=== PATIENT | male | born 1930 | race Caucasian/White ===

== ENCOUNTER 2020-10-17 07:14 | Inpatient (IN) | payer MEDICARE, OTHER ==
[2020-10-17 07:59] LABS: #Monocytes 0.3 10x3/uL (0.0-1.1); #Neutrophils 5.4 10x3/uL (1.5-8.4); %Basophils 0.6 % (0.0-2.0); %Lymphocytes 7.6 % (18.0-47.0); %Monocytes 5.4 % (0.0-10.0); %Neutrophils 85.5 % (40.0-75.0); Hemoglobin 10.6 g/dL (13.5-17.5); Mean Corpuscular HGB CONC 32.3 g/dL (32.0-36.0); Mean Corpuscular Hemoglobin 30.1 pg (27.0-33.0); Mean Corpuscular Volume 93.2 fl (81.2-95.1); Mean Platelet Volume 11.8 fl (7.4-10.4); Platelet Count 114 10x3/uL (150-450); RBC Distribution Width 14.8 % (11.5-14.5); Red Blood Cell (RBC) Count 3.52 10x6/uL (4.32-5.72); White Blood Cell (WBC) Count 6.3 10x3/uL (3.5-10.5)
[2020-10-17 08:07] LABS: INR-International Normal Ratio 1.8; Prothrombin Time 19.5 sec (9.5-12.1)
[2020-10-17 08:25] LABS: ALT (SGPT) 19 U/L (8-55); AST (SGOT) 24 U/L (5-34); Albumin 3.3 g/dL (3.4-4.8); Alkaline Phosphatase 42 U/L (40-110); Anion Gap 16 mmol/L (10-20); BUN (Urea Nitrogen) 23 mg/dL (8.4-25.7); Calc. Creatinine Clearance 0 mL/min (70-130); Carbon Dioxide 23 mmol/L (23-31); Chloride 102 mmol/L (98-107); Globulin 3.1 g/dL (2.4-3.5); Glucose 104 mg/dL (83-110); Potassium 3.4 mmol/L (3.5-5.1); Protein, Total 6.4 g/dL (5.8-8.1); Sodium 138 mmol/L (136-145)
[2020-10-17 08:26] LABS: Platelet Morphology Comment Appears Decreased; RBC Morphology Normal
[2020-10-17] MEDS ORDERED: Cefepime 2 GM VIAL ONE (08:40)
[2020-10-17] MEDS ORDERED: Vancomycin 1.5 GRAM/300 ML BAG 1.5 GM in Premix Bag 1 BAG IVPB SCH (08:45)
[2020-10-17 09:20] LABS: SARS-CoV-2 NAA Rapid Test Not Detected (NotDetected)
[2020-10-17] MEDS ORDERED: Ondansetron PF 4 MG/2 ML Vial IVP PRN (09:43)
[2020-10-17] MEDS ORDERED: Potassium Chloride 20 MEQ TAB PO SCH (10:00)
[2020-10-17] MEDS: Heparin 5,000 UNITS/ML VIAL SC SCH ×2 (15:00→20:12)
[2020-10-17] MEDS: Acetaminophen 325 MG TAB PO PRN (20:11)
[2020-10-17] MEDS: Atorvastatin Calcium 20 MG TAB PO SCH (20:11)
[2020-10-17] MEDS: Tamsulosin HCl 0.4 MG CAP PO SCH (20:12)
[2020-10-17] MEDS: Carvedilol 3.125 MG TAB PO SCH (20:12)
[2020-10-17] MEDS: Fish Oil 1,000 MG CAP PO SCH (20:12)
[2020-10-17] MEDS: Cefepime 1 GM in Sodium Chloride 0.9% 100 ML IVPB SCH (20:12)
[2020-10-17] MEDS: Gabapentin 300 MG CAP PO SCH (20:12)
[2020-10-18 05:12] LABS: Anion Gap 18 mmol/L (10-20); BUN (Urea Nitrogen) 23 mg/dL (8.4-25.7); Calc. Creatinine Clearance 43 mL/min (70-130); Calcium 8.5 mg/dL (7.8-10.44); Carbon Dioxide 16 mmol/L (23-31); Chloride 108 mmol/L (98-107); Glucose 98 mg/dL (83-110); Potassium 3.7 mmol/L (3.5-5.1); Sodium 138 mmol/L (136-145)
[2020-10-18 06:20] LABS: Hemoglobin 10.9 g/dL (13.5-17.5); Mean Corpuscular HGB CONC 30.4 g/dL (32.0-36.0); Mean Corpuscular Hemoglobin 30.4 pg (27.0-33.0); Mean Platelet Volume 11.7 fl (7.4-10.4); Platelet Count 79 10x3/uL (150-450); Red Blood Cell (RBC) Count 3.58 10x6/uL (4.32-5.72); White Blood Cell (WBC) Count 6.4 10x3/uL (3.5-10.5)
[2020-10-18 06:23] LABS: Band 5 % (5-11)
[2020-10-18 06:27] LABS: Monocytes 6 % (0-10)
[2020-10-18 06:28] LABS: Lymphocytes 15 % (21-51); Reactive Lymphocytes 4 % (0-10)
[2020-10-18 06:29] LABS: Anisocytosis SLIGHT = 6-15 cells (100X) (0-5/hpf); Neutrophil 68 % (42-75)
[2020-10-18 06:30] LABS: Macrocytosis MODERATE=16-30 cells (100X) (0-5/hpf)
[2020-10-18 06:31] LABS: Large Platelets SLIGHT; Platelet Clumps SLIGHT
[2020-10-18 06:32] LABS: Platelet Morphology Comment Appears Decreased
[2020-10-18 06:33] LABS: MDiff Complete? YES; Manual Diff?? YES
[2020-10-18] MEDS: Acetaminophen 325 MG TAB PO PRN ×2 (06:52→20:23)
[2020-10-18 09:23] LABS: INR-International Normal Ratio 1.5; Prothrombin Time 16.6 sec (9.5-12.1)
[2020-10-18] MEDS: Carvedilol 3.125 MG TAB PO SCH ×2 (09:40→20:24)
[2020-10-18] MEDS: Vancomycin HCl 1 GM in Sodium Chloride 0.9% 250 ML 250 ML IVPB SCH (09:40)
[2020-10-18] MEDS: Heparin 5,000 UNITS/ML VIAL SC SCH ×3 (09:40→20:23)
[2020-10-18] MEDS: Furosemide 20 MG TAB PO SCH (09:40)
[2020-10-18] MEDS: predniSONE 10 MG TAB PO SCH (09:40)
[2020-10-18] MEDS: Cefepime 1 GM in Sodium Chloride 0.9% 100 ML IVPB SCH ×2 (09:44→20:22)
[2020-10-18] MEDS: Tamsulosin HCl 0.4 MG CAP PO SCH (20:24)
[2020-10-18] MEDS: Atorvastatin Calcium 20 MG TAB PO SCH (20:24)
[2020-10-18] MEDS: Gabapentin 300 MG CAP PO SCH (20:24)
[2020-10-18] MEDS: Fish Oil 1,000 MG CAP PO SCH (20:34)
[2020-10-19] MEDS: Acetaminophen 325 MG TAB PO PRN ×2 (03:20→21:51)
[2020-10-19] MEDS: Heparin 5,000 UNITS/ML VIAL SC SCH ×3 (08:37→15:51)
[2020-10-19] MEDS: Aspirin 81 mg Enteric Coated Tablet PO SCH (08:38)
[2020-10-19] MEDS: predniSONE 10 MG TAB PO SCH (08:38)
[2020-10-19] MEDS: Furosemide 20 MG TAB PO SCH (08:38)
[2020-10-19] MEDS: Cefepime 1 GM in Sodium Chloride 0.9% 100 ML IVPB SCH (08:39)
[2020-10-19] MEDS: Vancomycin HCl 1 GM in Sodium Chloride 0.9% 250 ML 250 ML IVPB SCH (08:39)
[2020-10-19] MEDS: Carvedilol 3.125 MG TAB PO SCH ×2 (08:39→20:35)
[2020-10-19] MEDS ORDERED: CEFAZOLIN 2 GM in Premix Bag 1 BAG IVPB SCH (18:00)
[2020-10-19] MEDS: Atorvastatin Calcium 20 MG TAB PO SCH (20:27)
[2020-10-19] MEDS: Gabapentin 300 MG CAP PO SCH (20:27)
[2020-10-19] MEDS: Fish Oil 1,000 MG CAP PO SCH (20:35)
[2020-10-19] MEDS: Tamsulosin HCl 0.4 MG CAP PO SCH (20:35)
[2020-10-20] MEDS: Acetaminophen 325 MG TAB PO PRN (02:54)
[2020-10-20] MEDS ORDERED: diphenhydrAMINE 25 MG CAP PO SCH (03:00)
[2020-10-20] MEDS: CEFAZOLIN 2 GM in Premix Bag 1 BAG IVPB SCH ×3 (05:16→22:38)
[2020-10-20] MEDS: Aspirin 81 mg Enteric Coated Tablet PO SCH (09:13)
[2020-10-20] MEDS: Furosemide 20 MG TAB PO SCH (09:14)
[2020-10-20] MEDS: Carvedilol 3.125 MG TAB PO SCH ×2 (09:14→22:39)
[2020-10-20] MEDS: predniSONE 10 MG TAB PO SCH (09:14)
[2020-10-20] MEDS ORDERED: Lidocaine 1% PF 5 ML VIAL ONE (10:55)
[2020-10-20] MEDS ORDERED: Sodium Bicarbonate 2.5 MEQ/5 ML VIAL ONE (10:56)
[2020-10-20] MEDS: Atorvastatin Calcium 20 MG TAB PO SCH (22:39)
[2020-10-20] MEDS: Tamsulosin HCl 0.4 MG CAP PO SCH (22:39)
[2020-10-20] MEDS: Gabapentin 300 MG CAP PO SCH (22:39)
[2020-10-20] MEDS: Fish Oil 1,000 MG CAP PO SCH (22:39)
[2020-10-21] MEDS: CEFAZOLIN 2 GM in Premix Bag 1 BAG IVPB SCH ×3 (04:35→21:51)
[2020-10-21 05:55] LABS: INR-International Normal Ratio 1.1; Prothrombin Time 11.8 sec (9.5-12.1)
[2020-10-21] MEDS: Aspirin 81 mg Enteric Coated Tablet PO SCH (09:14)
[2020-10-21] MEDS: Furosemide 20 MG TAB PO SCH (09:14)
[2020-10-21] MEDS: predniSONE 10 MG TAB PO SCH (09:14)
[2020-10-21] MEDS: Carvedilol 3.125 MG TAB PO SCH ×2 (09:14→21:51)
[2020-10-21] MEDS: Tamsulosin HCl 0.4 MG CAP PO SCH (21:51)
[2020-10-21] MEDS: Fish Oil 1,000 MG CAP PO SCH (21:51)
[2020-10-21] MEDS: Gabapentin 300 MG CAP PO SCH (21:51)
[2020-10-21] MEDS: Atorvastatin Calcium 20 MG TAB PO SCH (21:51)
[2020-10-22] MEDS: CEFAZOLIN 2 GM in Premix Bag 1 BAG IVPB SCH ×3 (05:11→21:36)
[2020-10-22] MEDS: predniSONE 10 MG TAB PO SCH (09:59)
[2020-10-22] MEDS: Furosemide 20 MG TAB PO SCH (09:59)
[2020-10-22] MEDS: Carvedilol 3.125 MG TAB PO SCH ×2 (09:59→21:36)
[2020-10-22] MEDS: Aspirin 81 mg Enteric Coated Tablet PO SCH (10:02)
[2020-10-22] MEDS: Gabapentin 300 MG CAP PO SCH (21:35)
[2020-10-22] MEDS: Tamsulosin HCl 0.4 MG CAP PO SCH (21:35)
[2020-10-22] MEDS: Fish Oil 1,000 MG CAP PO SCH (21:35)
[2020-10-22] MEDS: Atorvastatin Calcium 20 MG TAB PO SCH (21:36)
[2020-10-23] MEDS: CEFAZOLIN 2 GM in Premix Bag 1 BAG IVPB SCH ×3 (05:13→21:37)
[2020-10-23] MEDS: Furosemide 20 MG TAB PO SCH (08:38)
[2020-10-23] MEDS: predniSONE 10 MG TAB PO SCH (08:38)
[2020-10-23] MEDS: Aspirin 81 mg Enteric Coated Tablet PO SCH (08:38)
[2020-10-23] MEDS: Carvedilol 3.125 MG TAB PO SCH ×2 (08:38→21:38)
[2020-10-23] MEDS: Atorvastatin Calcium 20 MG TAB PO SCH (21:37)
[2020-10-23] MEDS: Tamsulosin HCl 0.4 MG CAP PO SCH (21:37)
[2020-10-23] MEDS: Gabapentin 300 MG CAP PO SCH (21:38)
[2020-10-23] MEDS: Fish Oil 1,000 MG CAP PO SCH (21:38)
[2020-10-24] MEDS: CEFAZOLIN 2 GM in Premix Bag 1 BAG IVPB SCH (04:33)
[2020-10-24] MEDS: Aspirin 81 mg Enteric Coated Tablet PO SCH (10:22)
[2020-10-24] MEDS: predniSONE 10 MG TAB PO SCH (10:22)
[2020-10-24] MEDS: Furosemide 20 MG TAB PO SCH (10:23)
[2020-10-24] MEDS: Carvedilol 3.125 MG TAB PO SCH (10:23)
[2020-10-24 13:21] VITALS: BP 130/61; TEMP 98
== END 2020-10-24 14:30 | DRG 872 ==
LOC: CSHERS 07:14 → CSHTELE 08:34
PROVIDERS: ADMIT Internal Medicine; ATTEND Internal Medicine
PROC: 02HV33Z Insertion of Infusion Device into Superior Vena Cava, Percutaneous Approach (ICD-10-PCS; principal; 2020-10-20)
PROC: B548ZZA Ultrasonography of Superior Vena Cava, Guidance (ICD-10-PCS; 2020-10-20)
DX: A41.01 Sepsis due to Methicillin susceptible Staphylococcus aureus (principal); M00.871 Arthritis due to other bacteria, right ankle and foot; M86.171 Other acute osteomyelitis, right ankle and foot; L03.031 Cellulitis of right toe; I73.9 Peripheral vascular disease, unspecified; Z20.822 Contact with and (suspected) exposure to COVID-19; K21.9 Gastro-esophageal reflux disease without esophagitis; I48.91 Unspecified atrial fibrillation; N40.0 Benign prostatic hyperplasia without lower urinary tract symptoms; I10 Essential (primary) hypertension; G62.9 Polyneuropathy, unspecified; E87.6 Hypokalemia; L97.519 Non-pressure chronic ulcer of other part of right foot with unspecified severity; Z88.5 Allergy status to narcotic agent; Z88.8 Allergy status to other drugs, medicaments and biological substances; Z79.01 Long term (current) use of anticoagulants; Z79.899 Other long term (current) drug therapy; E78.5 Hyperlipidemia, unspecified; Z79.82 Long term (current) use of aspirin
CPT/HCPCS: 0240U; 36415; 36571; 71045; 80048; 80053; 82565; 83605; 83735; 84520; 85025; 85610; 85730; 87040; 87070; 87077; 87149; 87186; 87205; 93005; 93306; 93923; 94760; 96365; 96367; C1751; J0690; J0692; J1644; J2405; J3370; J3490; J7050; J7512